=== PATIENT | male | born 1955 | race Caucasian/White ===

== ENCOUNTER 2016-11-10 11:19 | Emergency (ER) | payer OTHER ==
[2016-11-10] MEDS ORDERED: FAMOTIDINE 20 MG/50 ML IVPB 50 ML IVPB ONE ×2 (11:35→11:48)
[2016-11-10] MEDS ORDERED: MAG HYDROX/AL HYDROX/SIMETH 30 ML UNIT-DOSE CUP PO ONE (11:35)
[2016-11-10] MEDS ORDERED: ONDANSETRON 4 MG/2 ML VIAL IVPB ONE (11:35)
[2016-11-10] MEDS ORDERED: ACETAMINOPHEN 325 MG TABLET (FP) PO ONE (11:35)
[2016-11-10] MEDS ORDERED: SODIUM CHLORIDE 1,000 ML IV STA (11:35)
--- NOTE | 2016-11-10 11:41 | PDOC ---
History of Present Illness - General Chief Complaint: Diarrhea Stated Complaint: DIARRHEA Time Seen by Provider: 11/10/16 11:21 History Source: Patient, Spouse Exam Limitations: No Limitations - History of Present Illness Initial Comments: 11/10/16 11:39 61-year-old male with past medical history of obesity, hypertension, BPH presents with multiple episodes of abdominal cramping and loose stooling. Symptoms began yesterday and patient reported feeling nauseous. Had about 5 loose episodes. Decreased appetite. Denies abdominal pain this time. He had taken 2 tablets of Imodium prior to arrival. Denies sick contacts, recent travels or bad foods. Past History - Past Medical History Allergies/Adverse Reactions: Allergies Allergy/AdvReac Type Severity Reaction Status Date / Time No Known Allergies Allergy Verified 11/10/16 11:29 Home Medications: Ambulatory Orders Losartan/Hydrochlorothiazide [Losartan-Hctz 100-25 mg Tab] 1 each PO DAILY 12/03 Atorvastatin Ca [Lipitor] 10 mg PO HS 11/10/16 Famotidine [Pepcid] 20 mg PO BID PRN #15 tablet 11/10/16 Mag Hydrox/Al Hydrox/Simeth [Mylanta Suspension -] 30 ml PO Q6H #1 bottle Ondansetron HCl [Zofran] 4 mg PO Q6H PRN #15 tablet 11/10/16 Spironolactone [Aldactone] 25 mg PO DAILY 11/10/16 Anemia: No Asthma: No Cancer: No Cardiac Disorders: No CVA: No COPD: No CHF: No Dementia: No Diabetes: No GI Disorders: No Disorders: Yes (BPH) HTN: Yes Hypercholesterolemia: No Liver Disease: No Seizures: No Thyroid Disease: No - Surgical History Abdominal Surgery: Yes (Bilateral Inguinal Hernia Repair) Appendectomy: No Cardiac Surgery: No Cholecystectomy: No Lung Surgery: No Neurologic Surgery: No Orthopedic Surgery: No - Psycho/Social/Smoking Cessation Hx Anxiety: No Suicidal Ideation: No Smoking History: Never smoked Have you smoked in the past 12 months: Yes Cigars Per Day: 1 'Breaking Loose' booklet given: 12/03/14 Hx Alcohol Use: No Drug/Substance Use Hx: No Substance Use Type: None Hx Substance Use Treatment: No Review of Systems - Review of Systems Able to Perform ROS?: Yes Comments:: 11/10/16 11:40 GENERAL/CONSTITUTIONAL: No fever, weakness. HEAD, EYES, EARS, NOSE AND THROAT: No change in vision. No ear pain or discharge. No sore throat. CARDIOVASCULAR: No chest pain or shortness of breath. RESPIRATORY: No cough, wheezing, or hemoptysis. GASTROINTESTINAL: +abdominal cramping, diarrhea, nausea GENITOURINARY: No dysuria, frequency, or change in urination. MUSCULOSKELETAL: No joint or muscle swelling or pain. No neck or back pain. SKIN: No rash NEUROLOGIC: No headache, vertigo, loss of consciousness, or change in strength/ sensation. ENDOCRINE: No increased thirst. No abnormal weight change. HEMATOLOGIC/LYMPHATIC: No anemia, easy bleeding, or history of blood clots. ALLERGIC/IMMUNOLOGIC: No hives or skin allergy. *Physical Exam - Physical Exam Comments: 11/10/16 11:41 GENERAL: Awake, alert, and fully oriented, in no acute distress. HEAD: No signs of trauma EYES: PERRLA, EOMI, sclera anicteric, conjunctiva clear ENT: Auricles normal inspection, hearing grossly normal, nares patent, oropharynx clear without exudates. NECK: Normal ROM, supple, no lymphadenopathy, JVD, or masses LUNGS: Breath sounds equal, clear to auscultation bilaterally. No wheezes, and no crackles HEART: Regular rate and rhythm, normal S1 and S2, no murmurs, rubs or gallops ABDOMEN: Soft, nontender, normoactive bowel sounds. No guarding, no rebound. No masses EXTREMITIES: Normal range of motion, no edema. No clubbing or cyanosis. No cords, erythema, or tenderness NEUROLOGICAL: Cranial nerves II through XII grossly intact. Normal speech, normal gait SKIN: Warm, Dry, normal turgor, no rashes or lesions noted. ED Treatment Course - LABORATORY CBC & Chemistry Diagram: 11/10/16 11:55 11/10/16 11:55 Medical Decision Making - Medical Decision Making 11/10/16 11:41 The patient's belly is nontender. I suspect that this is likely gastritis. Labs , IV fluids, symptom control and reassess. 11/10/16 13:07 CBC, BMP 11/10/16 11:55 11/10/16 11:55 CMP Sodium 137 mmol/L (136-145) 11/10/16 11:55 Potassium 4.6 mmol/L (3.5-5.1) 11/10/16 11:55 Chloride 104 mmol/L (98-107) 11/10/16 11:55 Carbon Dioxide 23 mmol/L (22-28) D 11/10/16 11:55 Anion Gap 10 (8-16) 11/10/16 11:55 BUN 29 mg/dl (7-18) H D 11/10/16 11:55 Creatinine 1.3 mg/dl (0.6-1.3) D 11/10/16 11:55 Creat Clearance w eGFR 55.75 (>60) 11/10/16 11:55 Random Glucose 125 mg/dl (74-106) H 11/10/16 11:55 Calcium 10.4 mg/dl (8.4-10.2) H 11/10/16 11:55 Total Bilirubin 0.7 mg/dl (0.2-1.0) D 11/10/16 11:55 AST 26 U/L (10-42) D 11/10/16 11:55 ALT 27 U/L (10-40) D 11/10/16 11:55 Alkaline Phosphatase 80 U/L (32-92) 11/10/16 11:55 Total Protein 6.7 g/dl (6.4-8.3) 11/10/16 11:55 Albumin 3.9 g/dl (3.5-5.0) 11/10/16 11:55 Lipase 69 U/L (22-51) H 11/10/16 11:55 Patient reports feeling better. I did inform the patient that his BUN/Cr is 29/1.3. This is likely prerenal. I instructed the patient to take the copy of the results and bring it back to his doctor for repeat Cr. Follow up with PMD. I discussed the physical exam findings, ancillary test results and final diagnoses with the patient. I answered all of the patient's questions. The patient was satisfied with the care received and felt comfortable with the discharge plan and treatment plan. The patient will call their primary care physician within 24 hours to arrange follow-up and will return to the Emergency Department with any new, persistant or worsening symptoms. 11/10/16 13:07 *DC/Admit/Observation/Transfer Diagnosis at time of Disposition: Diarrhea Qualifiers: Diarrhea type: unspecified type Qualified Code(s): R19.7 - Diarrhea, unspecified - Discharge Dispostion Disposition: HOME Condition at time of disposition: Good Admit: No - Prescriptions Prescriptions: Mag Hydrox/Al Hydrox/Simeth [Mylanta Suspension -] 30 ml PO Q6H #1 bottle Famotidine [Pepcid] 20 mg PO BID PRN #15 tablet PRN Reason: Abdominal Pain Ondansetron HCl [Zofran] 4 mg PO Q6H PRN #15 tablet PRN Reason: Nausea - Referrals Referrals: Arley Egan [Primary Care Provider] - - Patient Instructions Printed Discharge Instructions: Diarrhea Additional Instructions: Please take the medications as prescribed. It may take several days before your symptoms improve. Your kidney function was slightly high at 1.3, which I suspect is from the dehydration. Please take the copy of the results to your doctor.
[2016-11-10 11:43] VITALS: BP 135/90; PULSE 94; TEMP 98.8; BMI 35.5
[2016-11-10] MEDS ORDERED: ACETAMINOPHEN 325 MG TABLET (FP) ONE (11:47)
[2016-11-10] MEDS ORDERED: ONDANSETRON 4 MG/2 ML VIAL ONE (11:48)
[2016-11-10] MEDS ORDERED: MAG HYDROX/AL HYDROX/SIMETH 30 ML UNIT-DOSE CUP ONE (11:48)
[2016-11-10 12:13] LABS: BASOPHIL 1.5 % (0-2.0); EOSINOPHIL 1.7 % (0-4.5); MCH 30.4 pg (25.7-33.7); MCHC 33.9 g/dl (32.0-35.9); MEAN CELL VOLUME 89.7 fl (80-96); MEAN PLT VOLUME 10.2 fl (7.5-11.1); PLATELET COUNT 212 K/MM3 (134-434); RDW 12.4 % (11.9-15.9); WHITE BLOOD COUNT 15.8 K/mm3 (4.0-10.8)
[2016-11-10 12:28] LABS: ALBUMIN 3.9 g/dl (3.5-5.0); BILIRUBIN,TOTAL 0.7 mg/dl (0.2-1.0); CALCIUM 10.4 mg/dl (8.4-10.2); CREATININE 1.3 mg/dl (0.6-1.3); TOT PROT 6.7 g/dl (6.4-8.3)
== END 2016-11-10 13:30 | disposition home or self-care (01) ==
LOC: FER 11:19
PROC: 3E033GC Introduction of Other Therapeutic Substance into Peripheral Vein, Percutaneous Approach (ICD-10-PCS; principal; 2016-11-10)
PROC: 3E0337Z Introduction of Electrolytic and Water Balance Substance into Peripheral Vein, Percutaneous Approach (ICD-10-PCS; 2016-11-10)
DX: R19.7 Diarrhea, unspecified (principal); I10 Essential (primary) hypertension; N40.0 Benign prostatic hyperplasia without lower urinary tract symptoms; E66.9 Obesity, unspecified; Z68.35 Body mass index [BMI] 35.0-35.9, adult
CPT/HCPCS: 36415; 80053; 83690; 85025; 99282-25